=== PATIENT | male | born 1980 | race Two or more races ===

== ENCOUNTER 2023-03-19 12:50 | Emergency (ER) | payer MEDICAID ==
[~2023-03-19] VITALS: Ht 167.6 cm; Wt 93.8 kg
[2023-03-19 13:39] VITALS: BP 143/87; PULSE 74; RESP 20; TEMP 98.6; O2SAT 99
[2023-03-19 14:49] LABS: Amphetamine Screen, Urine Neg (NEGATIVE); Barbiturate Scree,Urine Neg (NEGATIVE); Benzodiazephine Screen, Urine Neg (NEGATIVE)
[2023-03-19 14:50] LABS: Cannabinoid Screen, Urine Pos (NEGATIVE); Cocaine Screen, Urine Neg (NEGATIVE); Opiate Scree,Urine Neg (NEGATIVE); Phencyclidine Screen, Urine Neg (NEGATIVE)
[2023-03-19 14:54] LABS: Basophils # (auto) 0 10 ^3/uL (0-0.2); Basophils % (auto) 0.4 % (0.0-2.0); Eosinophils # (auto) 0 10 ^3/uL (0-0.8); Eosinophils % (auto) 0.4 % (0.0-7.0); Hematocrit 47.7 % (36.0-46.0); Hemoglobin 16.6 g/dL (12.2-16.2); Lymphocytes # (auto) 4.5 10 ^3/uL (0.4-5.4); Mean Corpuscular Hemoglobin 31.9 pg (28.0-32.0); Mean Corpuscular Hgb Conc. 34.9 g/dL (32.0-36.0); Mean Corpuscular Volume 91.3 fL (80.0-100.0); Monocytes # (auto) 0.9 10 ^3/uL (0-1.3); Monocytes % (auto) 8.4 % (0.0-12.0); Neutrophils # (auto) 4.8 10 ^3/uL (1.6-8.6); Neutrophils % (auto) 46.8 % (37.0-80.0); Nucleated Red Blood Cells % 0.3 %; Red Blood Cells 5.22 10^6/uL (4.0-5.20); Red Cell Distribution Width 13.5 % (11.8-14.3); White Blood Cell 10.2 10^3/uL (4.4-10.8)
[2023-03-19 15:06] LABS: Chloride 109 mmol/L (98-107); Potassium 3.9 mmol/L (3.5-5.1); Sodium 140 mmol/L (136-145)
[2023-03-19 15:07] LABS: Anion Gap 7 (5-15); Carbon Dioxide 24 mmol/L (20-30)
[2023-03-19 15:08] LABS: Calcium 9.5 mg/dL (8.7-10.4)
[2023-03-19 15:12] LABS: BUN/Creatinine Ratio 19.8 (10.0-20.0); Blood Urea Nitrogen 20 mg/dL (9-23); Glucose 106 mg/dL (74-106)
[2023-03-19] MEDS ORDERED: IBUP-1456 PO (15:22)
[2023-03-19] MEDS ORDERED: HYDR50CA PO (15:22)
== END 2023-03-19 15:29 | disposition home or self-care (01) ==
LOC: ER 12:50 → EDSEX 12:50 → ER 15:28
DX: T38.0X5A Adverse effect of glucocorticoids and synthetic analogues, initial encounter (principal); F12.10 Cannabis abuse, uncomplicated; Y92.89 Other specified places as the place of occurrence of the external cause
CPT/HCPCS: 36415; 71045; 80048; 80307; 85025

== ENCOUNTER → 2023-06-18 | Emergency (ER) | payer MEDICAID ==
[~2023-06-18] VITALS: Ht 167.6 cm; Wt 92.2 kg
[~2023-06-18] MED LIST: HYDR50CA PO; IBUP-1456 PO
[2023-06-18 20:17] VITALS: BP 121/92; PULSE 81; RESP 16; O2SAT 99
== END | disposition left against medical advice (07) ==
LOC: ER 20:01
DX: H57.12 Ocular pain, left eye (principal); Z53.21 Procedure and treatment not carried out due to patient leaving prior to being seen by health care provider

== ENCOUNTER 2023-10-26 12:23 | Emergency (ER) | payer MEDICAID, OTHER ==
[~2023-10-26] VITALS: Ht 167.6 cm; Wt 102.3 kg
[2023-10-26 12:40] VITALS: BP 131/85; PULSE 70; RESP 16; O2SAT 98
== END 2023-10-26 12:44 | disposition left against medical advice (07) ==
LOC: ER 12:23
DX: M54.9 Dorsalgia, unspecified (principal); Z53.21 Procedure and treatment not carried out due to patient leaving prior to being seen by health care provider; V89.2XXA Person injured in unspecified motor-vehicle accident, traffic, initial encounter; Y93.I9 Activity, other involving external motion; Y92.89 Other specified places as the place of occurrence of the external cause; Y99.8 Other external cause status